=== PATIENT | female | born 1985 | race Caucasian/White ===

== ENCOUNTER 2020-03-31 06:23 | Emergency (ER) | payer BC ==
[2020-03-31] MEDS ORDERED: NA CHLORIDE 0.9% 1,000 ML ONE (06:57)
[2020-03-31 07:08] LABS: Absolute Lymphocytes (CBC) 2.1 K/uL (0.7-4.9); Basophils % 0.9 % (0-1.3); Hematocrit 37.7 % (36.0-45.0); Lymphocytes % 27.5 % (15.3-44.8); MPV 7.9 fL (7.6-11.3); RBC Red Blood Cell Count 4.41 M/uL (3.86-4.86)
[2020-03-31 07:25] LABS: Barbiturates NEGATIVE (NEGATIVE); Benzodiazepines NEGATIVE (NEGATIVE); Cocaine NEGATIVE (NEGATIVE); METHAMPHETAM NEGATIVE (NEGATIVE); Methadone NEGATIVE (NEGATIVE); Opiates NEGATIVE (NEGATIVE); Phencyclidine NEGATIVE (NEGATIVE); THC Cannibis NEGATIVE (NEGATIVE)
[2020-03-31 07:32] LABS: ALT/SGPT 24 U/L (12-78); AST/SGOT 18 U/L (15-37); Albumin 3.7 g/dL (3.4-5.0); Alkaline Phosphatase 32 U/L (45-117); BUN Blood Urea Nitrogen 12 mg/dL (7-18); Bicarbonate 21 mmol/L (21-32); Bilirubin Direct 0.1 mg/dL (0-0.2); Bilirubin Total 0.4 mg/dL (0.2-1.0); Glucose Level 104 mg/dL (74-106); Magnesium 1.7 mg/dL (1.8-2.4); NT PRO-BNP 67 pg/mL (<125); Potassium 3.3 mmol/L (3.5-5.1); Protein, Total 7.3 g/dL (6.4-8.2); Sodium Level 141 mmol/L (136-145); Troponin (Emerg Dept Use Only) < 0.02 ng/mL (0.0-0.045)
--- NOTE | 2020-03-31 08:17 | RAD REPORT ---
EXAM DESCRIPTION: RAD - Chest Single View - 03/31/2020 6:53 am CLINICAL HISTORY: COUGH, chest pain COMPARISON: None TECHNIQUE: AP portable chest image was obtained 03/31/2020 6:53 am . FINDINGS: Lungs are clear. Heart and vasculature are normal. No measurable pleural effusion and no p neumothorax. No acute bony abnormality seen. No acute aortic findings suspected. IMPRESSION: No acute cardiopulmonary process.
--- NOTE | 2020-03-31 08:23 | ER ---
Nurse's Notes [facility] Name: Veronica Russo Age: 34 yrs Sex: Female : 1985 Arrival Date: 03/31/2020 Time: 06:24 Bed 5 Private MD: Diagnosis: Palpitations;Chest pain, unspecified Presentation: 03/31 06:28 Chief complaint: EMS states: Pt drank a pre work out drink and started having chest wh pain. Pt stated feeling like palpitations and pressure. Coronavirus screen: Client denies travel out of the [place] in the last 14 days. At this time, the client does not indicate any symptoms associated with coronavirus-19. Ebola Screen: Patient negative for fever greater than or equal to 101.5 degrees Fahrenheit, and additional compatible Ebola Virus Disease symptoms Patient denies exposure to infectious person. Risk Assessment: Do you want to hurt yourself or someone else? Patient reports no desire to harm self or others. Onset of symptoms was March 31, 2020. Care prior to arrival: Medication(s) given: ASA, 325 mg, Nitroglycerin, x 1, NSR on EKG. 06:28 Method Of Arrival: EMS: [facility] 06:28 Acuity: AMANDA 3 06:28 Initial Sepsis Screen: Does the patient meet any 2 criteria? No. Patient's initial sepsis screen is negative. Does the patient have a suspected source of infection? No. Patient's initial sepsis screen is negative. 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 - Family history:: not pertinent. - Social history:: Smoking status: Patient/guardian denies using. Screenin:32 Abuse screen: Denies threats or abuse. Denies injuries from another. Nutritional screening: No deficits noted. Tuberculosis screening: No symptoms or risk factors identified. Fall Risk None identified. Assessment: 06:33 General: Appears in no apparent distress. Behavior is calm, cooperative, appropriate wh for age. Pain: Complains of pain in chest Pain does not radiate. Quality of pain is described as pressure, Pain began 1 hour ago. Neuro: Level of Consciousness is awake, alert, obeys commands, Oriented to person, place, time, situation, Appropriate for age. Cardiovascular: Heart tones S1 S2. Respiratory: Airway is patent Respiratory effort is even, unlabored, Respiratory pattern is regular, symmetrical, Breath sounds are clear bilaterally. GI: Abdomen is flat, non-distended. : No signs and/or symptoms were reported regarding the genitourinary system. EENT: No signs and/or symptoms were reported regarding the EENT system. Derm: Skin is intact, is healthy with good turgor, Skin is pink, warm \T\ dry. normal. Musculoskeletal: Circulation, motion, and sensation intact. 07:24 Reassessment: Patient and/or family updated on plan of care and expected duration. Pain jd3 level reassessed. provider at bedside. General: Appears in no apparent distress. comfortable, Behavior is calm, cooperative, appropriate for age. Pain: Complains of pain in chest Quality of pain is described as pressure. Neuro: Level of Consciousness is awake, alert, obeys commands, Oriented to person, place, time, situation. Cardiovascular: Capillary refill < 3 seconds Patient's skin is warm and dry. Rhythm is regular. Respiratory: Airway is patent Respiratory effort is even, unlabored, Respiratory pattern is regular, symmetrical, Denies cough, shortness of breath. 08:32 Reassessment: Patient appears in no apparent distress at this time. Patient and/or jd3 family updated on plan of care and expected duration. Pain level reassessed. Patient is alert, oriented x 3, equal unlabored respirations, skin warm/dry/pink. awaiting ride for discharge Patient states feeling better. Vital Signs: 06:28 BP 138 / 79; Pulse 89; Resp 18; Temp 98.2; Pulse Ox 98% on R/A; Weight 112.49 kg; Height 5 ft. 4 in. (162.56 cm); 08:33 BP 129 / 76; Pulse 88; Resp 16 S; Pulse Ox 98% on R/A; jd3 06:28 Body Mass Index 42.57 (112.49 kg, 162.56 cm) ED Course: 06:24 Patient arrived in ED. cl3 06:26 Bandar Mars MD is Attending Physician. [facility] 06:28 Damion Gaitan, RN is Primary Nurse. 06:30 Triage completed. 06:37 Arm band placed on right wrist. 06:37 Patient has correct armband on for positive identification. Placed in gown. Bed in low wh position. Call light in reach. Side rails up X 1. manager pmo on. Pulse ox on. NIBP on. 06:37 Patient maintains SpO2 saturation greater than 95% on room air. wh 06:51 XRAY Chest (1 view) In Process Unspecified. EDMS 06:54 Initial lab(s) drawn, by oh, sent to lab. Inserted saline lock: 20 gauge in left rv forearm, using aseptic technique. Blood collected. 07:03 Attending Physician role handed off by Bandar Mars MD rn 07:03 Satya Valladares MD is Attending Physician. rn 08:22 Serjio Tariq MD is Referral Physician. rn 08:32 No provider procedures requiring assistance completed. IV discontinued, intact, jd3 bleeding controlled, No redness/swelling at site. Pressure dressing applied. Administered Medications: 06:30 CANCELLED (EMS gave 324 Aspirin): Aspirin Chewable Tablet 162 mg PO once rv 07:08 Drug: NS 0.9% 1000 ml Route: IV; Rate: 1 bolus; Site: left forearm; 08:00 Follow up: Response: No adverse reaction; IV Status: Completed infusion; IV Intake: jd3 1000ml Intake: 08:00 IV: 1000ml; Total: 1000ml. jd3 Outcome: 08:22 Discharge ordered by MD. rn 08:32 Discharged to home ambulatory, with family. jd3 08:32 Condition: stable 08:32 Discharge instructions given to patient, Instructed on discharge instructions, follow up and referral plans. Demonstrated understanding of instructions, follow-up care. 08:57 Patient left the ED. jd3 Signatures: Dispatcher [employer] EDNE Bandar Mars MD MD cha Nieto, Roman, MD MD rn Habalo, Winsy, RN RN wh Davies, Jonathon, RN RN jWilliam Calloway RN RN rv Lewis, Charde cl3 Corrections: (The following items were deleted from the chart) 06:37 06:28 Resp 18bpm; Temp 98.2F; 112.49 kg; Height 5 ft. 4 in.; BMI: 42.5; [facility]
--- NOTE | 2020-03-31 08:23 | EDPHYS ---
Physician Documentation [facility] Name: Veronica Russo Age: 34 yrs Sex: Female : 1985 Arrival Date: 03/31/2020 Time: 06:24 Bed 5 Private MD: ED Physician Satya Valladares HPI: 03/31 06:28 This 34 yrs old Female presents to ER via Unassigned with complaints of Chest vanessa Pain. 06:28 The patient or guardian reports chest pain that is located primarily in the anterior vanessa chest wall, bilaterally. The pain does not radiate. Associated signs and symptoms: Pertinent positives: diaphoresis, dizziness, lightheadedness, nausea, palpitations. The chest pain is described as a pressure. Duration: The patient or guardian reports a single episode, that is still ongoing, but improving. Modifying factors: The symptoms are alleviated by nothing. the symptoms are aggravated by nothing. Severity of pain: At its worst the pain was mild in the emergency department the pain is unchanged. The patient has not experienced similar symptoms in the past. 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 - Family history:: not pertinent. - Social history:: Smoking status: Patient/guardian denies using. ROS: 06:28 Constitutional: Negative for fever, chills, and weight loss, Eyes: Negative for injury, vanessa pain, redness, and discharge, ENT: Negative for injury, pain, and discharge, Neck: Negative for injury, pain, and swelling, Respiratory: Negative for shortness of breath, cough, wheezing, and pleuritic chest pain, Abdomen/GI: Negative for abdominal pain, nausea, vomiting, diarrhea, and constipation, Back: Negative for injury and pain, : Negative for injury, bleeding, discharge, and swelling, MS/Extremity: Negative for injury and deformity, Skin: Negative for injury, rash, and discoloration, Neuro: Negative for headache, weakness, numbness, tingling, and seizure, Psych: Negative for depression, anxiety, suicide ideation, homicidal ideation, and hallucinations, Allergy/Immunology: Negative for hives, rash, and allergies, Endocrine: Negative for neck swelling, polydipsia, polyuria, polyphagia, and marked weight changes, Hematologic/Lymphatic: Negative for swollen nodes, abnormal bleeding, and unusual bruising. 06:28 Cardiovascular: Positive for chest pain, palpitations. Exam: 06:28 Constitutional: This is a well developed, well nourished patient who is awake, alert, vanessa and in no acute distress. Head/Face: Normocephalic, atraumatic. Eyes: Pupils equal round and reactive to light, extra-ocular motions intact. Lids and lashes normal. Conjunctiva and sclera are non-icteric and not injected. Cornea within normal limits. Periorbital areas with no swelling, redness, or edema. ENT: Nares patent. No nasal discharge, no septal abnormalities noted. Tympanic membranes are normal and external auditory canals are clear. Oropharynx with no redness, swelling, or masses, exudates, or evidence of obstruction, uvula midline. Mucous membranes moist. Neck: Trachea midline, no thyromegaly or masses palpated, and no cervical lymphadenopathy. Supple, full range of motion without nuchal rigidity, or vertebral point tenderness. No Meningismus. Chest/axilla: Normal chest wall appearance and motion. Nontender with no deformity. No lesions are appreciated. Cardiovascular: Regular rate and rhythm with a normal S1 and S2. No gallops, murmurs, or rubs. Normal PMI, no JVD. No pulse deficits. Respiratory: Lungs have equal breath sounds bilaterally, clear to auscultation and percussion. No rales, rhonchi or wheezes noted. No increased work of breathing, no retractions or nasal flaring. Abdomen/GI: Soft, non-tender, with normal bowel sounds. No distension or tympany. No guarding or rebound. No evidence of tenderness throughout. Back: No spinal tenderness. No costovertebral tenderness. Full range of motion. Skin: Warm, dry with normal turgor. Normal color with no rashes, no lesions, and no evidence of cellulitis. MS/ Extremity: Pulses equal, no cyanosis. Neurovascular intact. Full, normal range of motion. Neuro: Awake and alert, GCS 15, oriented to person, place, time, and situation. Cranial nerves II-XII grossly intact. Motor strength 5/5 in all extremities. Sensory grossly intact. Cerebellar exam normal. Normal gait. Psych: Awake, alert, with orientation to person, place and time. Behavior, mood, and affect are within normal limits. 06:28 Musculoskeletal/extremity: DVT Exam: No signs of deep vein thrombosis. no pain, no swelling, no tenderness, negative Homans' sign noted on exam, no appreciated bluish discoloration, no erythema, no increased warmth. 06:37 ECG was reviewed by the Attending Physician. [facility] Vital Signs: 06:28 BP 138 / 79; Pulse 89; Resp 18; Temp 98.2; Pulse Ox 98% on R/A; Weight 112.49 kg; wh Height 5 ft. 4 in. (162.56 cm); 08:33 BP 129 / 76; Pulse 88; Resp 16 S; Pulse Ox 98% on R/A; jd3 06:28 Body Mass Index 42.57 (112.49 kg, 162.56 cm) wh MDM: 06:30 Differential diagnosis: abnormal EKG, acute pericarditis, anxiety, coronary artery vanessa disease chest wall pain, Cholelithiasis costochondritis, hiatal hernia, pancreatitis, pericarditis, stable angina, unstable angina. HEART Score: History: Slightly Suspicious (0), ECG: Normal (0), Age: < or = 45 years (0), Risk Factors: No Risk Factors Known (0), Troponin: < or = 1 x Normal Limit (0), Total Score = 0. The patient's deep vein thrombosis risk score was calculated as follows: Total Score: 0. This patient was found to be at low risk for a deep vein thrombosis by using the Well's assessment criteria. The patient's pulmonary embolism risk score was calculated as follows: Total Score: 0-2 points. This patient was found to be at low risk for a pulmonary embolism by using the Well's assessment criteria. ALEJANDRA Risk Score: not applicable, TOTAL SCORE =. Data reviewed: vital signs, nurses notes, lab test result(s), EKG, radiologic studies. 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 rate is 93 beats/min, Pulse oximetry: on room air is 98 %. Test interpretation: by ED physician or midlevel provider: plain radiologic studies. Counseling: I had a detailed discussion with the patient and/or guardian regarding: the historical points, exam findings, and any diagnostic results supporting the discharge/admit diagnosis, lab results, radiology results, the need for outpatient follow up, for definitive care, a air chipper, a family practitioner. 06:37 Patient medically screened. vanessa 07:19 Transition of care: Care assumed from Bandar Mars MD. rn 07:19 ED course: signed out to me by Dr. Mars, pending labs and eval for chest pain after rn stimulant ingestion. Plan per Dr. Mars is to dc home if w/u neg. . 08:21 ED course: Trop neg, ecg without ischemia, feels much better, recommend cessation of rn stimulants, and will dc home. If continues will have her f/u with cardiology. . 03/31 06:28 Order name: Basic Metabolic Panel; Complete Time: 08:12 vanessa 03/31 06:28 Order name: CBC with Diff; Complete Time: 08:12 vanessa 03/31 06:28 Order name: LFT's; Complete Time: 08:12 vanessa 03/31 06:28 Order name: Magnesium; Complete Time: 08:12 vanessa 03/31 06:28 Order name: NT PRO-BNP; Complete Time: 08:12 vanessa 03/31 06:28 Order name: Troponin (emerg Dept Use Only); Complete Time: 08:12 vanessa 03/31 06:28 Order name: XRAY Chest (1 view); Complete Time: 08:20 vanessa 03/31 06:28 Order name: EKG; Complete Time: 06:29 vanessa 03/31 06:28 Order name: TSH; Complete Time: 08:12 vanessa 03/31 06:40 Order name: UDS; Complete Time: 08:12 vanessa 03/31 07:02 Order name: Urine Dipstick--Ancillary (enter results); Complete Time: 08:56 eb 03/31 07:02 Order name: Urine --Ancillary (enter results); Complete Time: 08:56 eb 03/31 06:28 Order name: Cardiac monitoring; Complete Time: 06:54 vanessa 03/31 06:28 Order name: EKG - Nurse/Tech; Complete Time: 06:54 vanessa 03/31 06:28 Order name: IV Saline Lock; Complete Time: 06:54 vanessa 03/31 06:28 Order name: Labs collected and sent; Complete Time: 06:54 vanessa 03/31 06:28 Order name: O2 Per Protocol; Complete Time: 06:55 [facility] 03/31 06:28 Order name: O2 Sat Monitoring; Complete Time: 06:55 [facility] 03/31 06:28 Order name: Urine Dipstick-Ancillary (obtain specimen); Complete Time: 06:45 [facility] 03/31 06:28 Order name: Urine Test (obtain specimen); Complete Time: 06:45 [facility] EC:37 Rate is 78 beats/min. Rhythm is regular. QRS [place] is Normal. NV interval is normal. QRS vanessa interval is normal. QT interval is normal. No Q waves. T waves are Normal. No ST changes noted. Clinical impression: Normal ECG and No evidence of ischemia. Interpreted by me. Reviewed by me. Administered Medications: 06:30 CANCELLED (EMS gave 324 Aspirin): Aspirin Chewable Tablet 162 mg PO once rv 07:08 Drug: NS 0.9% 1000 ml Route: IV; Rate: 1 bolus; Site: left forearm; 08:00 Follow up: Response: No adverse reaction; IV Status: Completed infusion; IV Intake: jd3 1000ml Disposition: 03/31/20 08:22 Discharged to Home. Impression: Palpitations, Chest pain, unspecified. - Condition is Stable. - Discharge Instructions: Nonspecific Chest Pain, Palpitations, Nonspecific Chest Pain, [id number], Aspirin and Your Heart, Palpitations, [id number]. - Medication Reconciliation Form, Thank You Letter, Antibiotic Education, Prescription Opioid Use, Work release form form. - Follow up: Private Physician; When: 2 - 3 days; Reason: Recheck today's complaints, Continuance of care, Re-evaluation by your physician. Follow up: Serjio Tariq; When: 2 - 3 days; Reason: Recheck today's complaints, Continuance of care, Re-evaluation by your physician. - Problem is new. - Symptoms have improved. Signatures: Dispatcher [employer] EDBandar Chakraborty MD MD cha Nieto, Roman, MD MD rn Habalo, Winsy, RN RN Dimas Geller RN RN jd3 Vicente, Ronaldo RN rv Corrections: (The following items were deleted from the chart) 06:30 06:28 Aspirin Chewable Tablet 162 mg PO once ordered. [facility] rv 08:57 08:22 03/31/2020 08:22 Discharged to Home. Impression: Palpitations; Chest pain, jd3 unspecified. Condition is Stable. Discharge Instructions: Nonspecific Chest Pain, Palpitations, Nonspecific Chest Pain, [id number], Aspirin and Your Heart, Palpitations, [id number]. Forms are Medication Reconciliation Form, Thank You Letter, Antibiotic Education, Prescription Opioid Use. Follow up: Private Physician; When: 2 - 3 days; Reason: Recheck today's complaints, Continuance of care, Re-evaluation by your physician. Follow up: Serjio Tariq; When: 2 - 3 days; Reason: Recheck today's complaints, Continuance of care, Re-evaluation by your physician. Problem is new. Symptoms have improved. rn
[2020-03-31 08:44] LABS: Urine Blood 3+ (NEG); Urine Glucose NEGATIVE (NEG); Urine Protein 3+ (NEG); Urine Specific Gravity 1.025 (1.005-1.030)
[2020-03-31 09:02] VITALS: TEMP 98.2; O2SAT 98
[2020-03-31 09:03] VITALS: BP 129/76
== END 2020-03-31 08:57 | disposition home or self-care (01) ==
LOC: ER 06:23
DX: R00.2 Palpitations (principal)
CPT/HCPCS: 93005; 85025; 80048; 36415; 83735; 81025; 80076; 80307 ×8; 84443; 81003; 84484; 83880; 71045; 96360; 99285; J7030

== ENCOUNTER 2020-07-13 16:26 | Emergency (ER) | payer SELFPAY ==
--- NOTE | 2020-07-13 20:28 | ER ---
Nurse's Notes [facility] Name: Veronica Russo Age: 35 yrs Sex: Female : 1985 Arrival Date: 07/13/2020 Time: 16:30 Bed Waiting Private MD: Diagnosis: Presentation: 07/13 16:44 Chief complaint: Patient states: chest pain that began 2 days ago after exercising and aa5 today it's been more constant and worse, pt also c/o SOB. 16:44 Coronavirus screen: At this time, the client does not indicate any symptoms associated aa5 with coronavirus-19. Ebola Screen: Patient negative for fever greater than or equal to 101.5 degrees Fahrenheit, and additional compatible Ebola Virus Disease symptoms. Initial Sepsis Screen: Does the patient meet any 2 criteria? No. Patient's initial sepsis screen is negative. Does the patient have a suspected source of infection? No. Patient's initial sepsis screen is negative. Risk Assessment: Do you want to hurt yourself or someone else? Patient reports no desire to harm self or others. Onset of symptoms was June 2020. 16:44 Acuity: AMANDA 3 aa5 16:44 Method Of Arrival: Ambulatory aa5 Historical: - Allergies: 16:46 Levaquin; aa5 16:46 Codeine; aa5 - PMHx: 16:49 high heart rate; aa5 - Immunization history:: Adult Immunizations unknown. - Social history:: Smoking status: Patient denies any tobacco usage or history of. Assessment: 19:38 Reassessment: called from the lobby, no answer. ca1 Vital Signs: 16:44 BP 121 / 72; Pulse 92; Resp 26 S; Temp 98.7(O); Pulse Ox 100% on R/A; Weight 127.01 kg aa5 (R); Height 5 ft. 4 in. (162.56 cm) (R); Pain 8/10; 16:44 Body Mass Index 48.06 (127.01 kg, 162.56 cm) aa5 ED Course: 16:30 Patient arrived in ED. mr 16:46 Arm band placed on. EKG completed in triage. Results shown to MD. aa5 16:47 Triage completed. aa5 19:36 Patient's name was called from ER lobby. No response. Unable to locate patient. Will ca1 disposition as left without being seen by a provider. Administered Medications: No medications were administered Outcome: 20:27 Patient left the ED. ca1 Signatures: Lauro Jennifer DuttonVicky, RN RN aa5 Kemi Donaldson RN RN ca1 Corrections: (The following items were deleted from the chart) 16:49 16:46 PMHx: None; aa5 aa5 20:27 20:26 Patient's name was called from ER Inform[facility]by. No response. Unable to locate patient. ca1 Will disposition as left without being seen by a provider. ca1
[2020-07-13 20:31] VITALS: BP 121/72; TEMP 98.7; O2SAT 100
== END 2020-07-13 20:27 | disposition left against medical advice (07) ==
LOC: ER 16:26
DX: Z53.21 Procedure and treatment not carried out due to patient leaving prior to being seen by health care provider (principal)
CPT/HCPCS: 93005; 99281

== ENCOUNTER 2020-10-16 05:35 | Emergency (ER) | payer BC ==
[2020-10-16 06:43] LABS: Absolute Lymphocytes (CBC) 1.5 K/uL (0.7-4.9); Basophils % 0.8 % (0-1.3); Lymphocytes % 17.9 % (15.3-44.8); MPV 7.8 fL (7.6-11.3); RBC Red Blood Cell Count 4.57 M/uL (3.86-4.86)
[2020-10-16 06:46] LABS: Protime INR 1.14
[2020-10-16 07:07] LABS: ALT/SGPT 76 U/L (12-78); AST/SGOT 47 U/L (15-37); Albumin 3.6 g/dL (3.4-5.0); Alkaline Phosphatase 30 U/L (45-117); BUN Blood Urea Nitrogen 9 mg/dL (7-18); Bicarbonate 24 mmol/L (21-32); Bilirubin Direct 0.5 mg/dL (0-0.2); Bilirubin Total 0.9 mg/dL (0.2-1.0); Glucose Level 88 mg/dL (74-106); Magnesium 1.8 mg/dL (1.8-2.4); NT PRO-BNP 49 pg/mL (<125); Potassium 3.4 mmol/L (3.5-5.1); Protein, Total 7.3 g/dL (6.4-8.2); Sodium Level 141 mmol/L (136-145); Troponin (Emerg Dept Use Only) < 0.02 ng/mL (0.0-0.045)
--- NOTE | 2020-10-16 08:30 | ER ---
Nurse's Notes [facility] Name: Veronica Russo Age: 35 yrs Sex: Female : 1985 Arrival Date: 10/16/2020 Time: 05:37 Bed Waiting Private MD: Diagnosis: Palpitations;Chest pain, unspecified Presentation: 10/16 06:08 Chief complaint: Patient states: woke up with rapid HR in the 160s and chest pain, em denies nausea and vomiting, has had this happen in the past and has had many work up and Holter monitors, was placed on metoprolol but the medication made right side of face numb. Coronavirus screen: Client denies travel out of the [place] in the last 14 days. Ebola Screen: Patient negative for fever greater than or equal to 101.5 degrees Fahrenheit, and additional compatible Ebola Virus Disease symptoms Patient denies exposure to infectious person. Patient denies travel to an Ebola-affected area in the 21 days before illness onset. No symptoms or risks identified at this time. Initial Sepsis Screen: Does the patient meet any 2 criteria? HR > 90 bpm. No. Patient's initial sepsis screen is negative. Does the patient have a suspected source of infection? No. Patient's initial sepsis screen is negative. Risk Assessment: Do you want to hurt yourself or someone else? Patient reports no desire to harm self or others. Onset of symptoms was October 16, 2020. 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 - Social history:: Smoking status: Patient denies any tobacco usage or history of. - Family history:: not pertinent. - Hospitalizations: : No recent hospitalization is reported. Screenin:08 Abuse screen: Denies threats or abuse. Nutritional screening: No deficits noted. em Tuberculosis screening: No symptoms or risk factors identified. Fall Risk None identified. Assessment: 06:08 General: Appears in no apparent distress. comfortable, Behavior is calm, cooperative, em appropriate for age. Pain: Complains of pain in chest. Neuro: Level of Consciousness is awake, alert, obeys commands, Oriented to person, place, time, situation, Appropriate for age. Cardiovascular: Capillary refill < 3 seconds Patient's skin is warm and dry. Rhythm is sinus rhythm. Respiratory: Airway is patent Respiratory effort is even, unlabored, Respiratory pattern is regular, symmetrical. GI: Patient currently denies nausea, vomiting. Derm: Skin is intact, is healthy with good turgor, Skin is pink, warm \T\ dry. Musculoskeletal: Capillary refill < 3 seconds, Range of motion: intact in all extremities. 07:30 Reassessment: Patient appears in no apparent distress at this time. Patient and/or ss family updated on plan of care and expected duration. Pain level reassessed. Patient is alert, oriented x 3, equal unlabored respirations, skin warm/dry/pink. Dr. Valladares assessing patient at this time. 07:45 Reassessment: XRAY obtained at this time. Awaiting results. ss Vital Signs: 06:08 BP 118 / 82; Pulse 91; Resp 18; Temp 98.1; Pulse Ox 100% on R/A; Weight 112.94 kg; em Height 5 ft. 4 in. (162.56 cm); 07:29 BP 116 / 67; Pulse 90; Resp 16; Temp 97.7(TE); Pulse Ox 100% on R/A; ss 06:08 Body Mass Index 42.74 (112.94 kg, 162.56 cm) em ED Course: 05:37 Patient arrived in ED. bp1 06:05 Initial lab(s) drawn, by me, sent to lab. Inserted saline lock: 22 gauge in right em antecubital area, using aseptic technique. Blood collected. 06:08 Patient has correct armband on for positive identification. em 06:11 Triage completed. em 06:11 Arm band placed on. em 07:16 Satya Valladares MD is Attending Physician. rn 07:30 No provider procedures requiring assistance completed. ss 08:23 XRAY Chest (1 view) In Process Unspecified. EDMS 08:52 Patient did not have IV access during this emergency room visit. ss Administered Medications: 08:22 Drug: Potassium Chloride 40 mEq Route: PO; em 08:28 Not Given (not tachycardicc): Propranolol 10 mg PO once rn Outcome: 08:29 Discharge ordered by . rn 08:52 Discharged to home ambulatory. ss 08:52 Condition: good 08:52 Discharge instructions given to patient, Instructed on discharge instructions, follow up and referral plans. Demonstrated understanding of instructions, follow-up care, Prescriptions given X 08:52 Patient left the ED. ss Signatures: Dispatcher [employer] EDRoel Basurto RN RN em Nieto, Roman, MD MD rn Smirch, Shelby, RN RN [facility] Corrections: (The following items were deleted from the chart) 07:26 06:08 Chief complaint: Patient states: woke up with rapid HR in the 160s and chest em pain, nausea and vomiting, has had this happen in the past and has had many work up and Holter monitors, was placed on metoprolol but the medication made right side of face numb em
--- NOTE | 2020-10-16 08:30 | EDPHYS ---
Physician Documentation [facility] Name: Veronica Russo Age: 35 yrs Sex: Female : 1985 Arrival Date: 10/16/2020 Time: 05:37 Bed Waiting Private MD: ED Physician Satya Vlaladares HPI: 10/16 07:30 This 35 yrs old Female presents to ER via Wheelchair with complaints of Rapid athletic training internship Beat. 07:30 The patient presents with a history of heart racing. Context: The symptoms occur during rn sleep. Onset: The symptoms/episode began/occurred just prior to arrival. Duration: The patient or guardian reports a single episode, that lasted 2 minute(s). Modifying factors: The symptoms are aggravated by nothing. The symptoms are alleviated by nothing. Associated signs and symptoms: Pertinent positives: chest pain, Pertinent negatives: fever, lightheadedness, SOB, syncope. Severity of symptoms: At their worst the symptoms were moderate in the emergency department the symptoms have improved. The patient has experienced similar episodes in the past. The patient has been recently seen by a physician:. Patient reports palpitations that woke her up from sleep this morning, heart was racing, states heart rate in the 160s, lasted for 2 minutes and now markedly improved. States this has been happening for the last 6 months at least. No family history of cardiac problems at her age. Just had surgery 2 weeks ago for hiatal hernia repair and esophageal dilation. Denies any blood in stool/diarrhea/vomiting/abdominal pain. Reports palpitations on and off for at least 6 months, multiple work-ups and admissions without diagnosis, placed on metoprolol but had adverse effect of paresthesias on face so stopped it.. 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 - Social history:: Smoking status: Patient denies any tobacco usage or history of. - Family history:: not pertinent. - Hospitalizations: : No recent hospitalization is reported. ROS: 07:30 Constitutional: Negative for fever, chills, and weight loss, Eyes: Negative for injury, rn pain, redness, and discharge, ENT: Negative for injury, pain, and discharge, Neck: Negative for injury, pain, and swelling, Cardiovascular: Negative for edema Respiratory: Negative for shortness of breath, cough, wheezing, and pleuritic chest pain, Abdomen/GI: Negative for abdominal pain, nausea, vomiting, diarrhea, and constipation, Back: Negative for injury and pain, : Negative for injury, bleeding, discharge, and swelling, MS/Extremity: Negative for injury and deformity, Skin: Negative for injury, rash, and discoloration, Neuro: Negative for headache, weakness, numbness, tingling, and seizure. 07:30 All other systems are negative. Exam: 07:30 Constitutional: Overweight female, no acute distress, sitting in wheelchair rn comfortably Head/Face: Normocephalic, atraumatic. Eyes: Periorbital areas with no swelling, redness, or edema. ENT: No stridor Cardiovascular: Tachycardic, regular, no pulse deficits Respiratory: Speaking full sentences, unlabored. No increased work of breathing, no retractions or nasal flaring. Abdomen/GI: Soft, nondistended Skin: Warm, dry MS/ Extremity: Pulses equal, no cyanosis. Neuro: Awake and alert, GCS 15 07:35 ECG was reviewed by the Attending Physician. rn Vital Signs: 06:08 BP 118 / 82; Pulse 91; Resp 18; Temp 98.1; Pulse Ox 100% on R/A; Weight 112.94 kg; em Height 5 ft. 4 in. (162.56 cm); 07:29 BP 116 / 67; Pulse 90; Resp 16; Temp 97.7(TE); Pulse Ox 100% on R/A; ss 06:08 Body Mass Index 42.74 (112.94 kg, 162.56 cm) em MDM: 07:46 Differential diagnosis: arrythmia, dehydration, stress disorder, MVP, palpitations, rn anxiety, electrolyte disorder. Data reviewed: vital signs, nurses notes, lab test result(s), EKG, radiologic studies, plain films. 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 Interpretation: normal. Test interpretation: by ED physician or midlevel provider: ECG, plain radiologic studies, CXR neg for infiltrate or pneumothorax. 08:28 Counseling: I had a detailed discussion with the patient and/or guardian regarding: the rn historical points, exam findings, and any diagnostic results supporting the discharge/admit diagnosis, lab results, radiology results, the need for outpatient follow up, to return to the emergency department if symptoms worsen or persist or if there are any questions or concerns that arise at home. Special discussion: Based on the patient's history, exam, and Dx evaluation, there is no indication for emergent intervention or inpatient Tx. It is understood by the patient/guardian that if the Sx's persist or worsen they need to return immediately for re-evaluation. I discussed with the patient/guardian in detail that at this point there is no indication for admission to the hospital. It is understood, however, that if the symptoms persist or worsen the patient needs to return immediately for re-evaluation. Based on the history and exam findings, there is no indication for further emergent testing or inpatient evaluation. I discussed with the patient/guardian the need to see the fireworks maker for further evaluation of the symptoms. ED course: Repeat vital signs normal, mild hypokalemia on blood work otherwise everything within normal limits. EKG without ischemia and troponin negative. Will DC home with cardiology follow-up and PCP follow-up.. 08:29 Patient medically screened. rn 10/16 06:32 Order name: Basic Metabolic Panel 10/16 06:32 Order name: CBC with Diff 10/16 06:32 Order name: LFT's 10/16 06:32 Order name: Magnesium em 10/16 06:32 Order name: NT PRO-BNP 10/16 06:32 Order name: PT-INR 10/16 06:32 Order name: Troponin (emerg Dept Use Only) 10/16 06:44 Order name: CBC with Automated Diff; Complete Time: 07:24 EDOH 10/16 06:47 Order name: Protime (+INR); Complete Time: 07:24 EDOH 10/16 07:07 Order name: Basic Metabolic Panel; Complete Time: 07:24 EDOH 10/16 07:07 Order name: Liver (Hepatic) Function; Complete Time: 07:24 EDOH 10/16 07:07 Order name: Troponin (Emerg Dept Use Only); Complete Time: 07:24 EDMS 10/16 07:07 Order name: NT PRO-BNP; Complete Time: 07:24 EDMS 10/16 07:07 Order name: Magnesium; Complete Time: 07:24 EDMS 10/16 06:32 Order name: XRAY Chest (1 view) em 10/16 06:32 Order name: EKG; Complete Time: 06:33 em 10/16 06:32 Order name: Cardiac monitoring em 10/16 06:32 Order name: EKG - Nurse/Tech em 10/16 06:32 Order name: IV Saline Lock em 10/16 06:32 Order name: Labs collected and sent em 10/16 06:32 Order name: O2 Per Protocol em 10/16 06:32 Order name: O2 Sat Monitoring em EC:35 Rate is 105 beats/min. Rhythm is regular. QRS Reading is Normal. AK interval is normal. rn QRS interval is normal. QT interval is normal. No Q waves. T waves are Normal. No ST changes noted. Clinical impression: Sinus tachycardia. Interpreted by me. Reviewed by me. Administered Medications: 08:22 Drug: Potassium Chloride 40 mEq Route: PO; em 08:28 Not Given (not tachycardicc): Propranolol 10 mg PO once rn Disposition Summary: 10/16/20 08:29 Discharge Ordered Location: Home rn Problem: an ongoing problem rn Symptoms: have improved rn Condition: Stable rn Diagnosis - Palpitations rn - Chest pain, unspecified rn Followup: rn - With: Private Physician - When: As needed - Reason: Recheck today's complaints, Re-evaluation by your physician Discharge Instructions: - Discharge Summary Sheet rn - Nonspecific Chest Pain, Adult rn - Palpitations rn Forms: - Medication Reconciliation Form rn - Thank You Letter rn - Antibiotic dietary internship - Prescription Opioid Use rn Signatures: Dispatcher [employer] Roel Rodriguez RN RN em Satya Valladares MD MD rn
--- NOTE | 2020-10-16 08:34 | RAD REPORT ---
EXAM DESCRIPTION: RAD - Chest Single View - 10/16/2020 8:24 am CLINICAL HISTORY: CHEST PAIN COMPARISON: Chest Single View dated 03/31/2020 FINDINGS: No evidence of edema or pneumonia. The heart size is within normal limits.No acute osseous abnormality. No significant pleural effusions or pneumothorax. IMPRESSION: No acute cardiopulmonary disease.
[2020-10-16] MEDS ORDERED: POTASSIUM CL SA 10 MEQ TAB PO ONE (08:43)
[2020-10-16 08:59] VITALS: O2SAT 100
[2020-10-16 09:01] VITALS: BP 116/67; TEMP 97.7
[2020-10-16] MEDS ORDERED: POTASSIUM 25 MEQ EFFERV TAB ONE (09:07)
== END 2020-10-16 08:52 | disposition home or self-care (01) ==
LOC: ER 05:35
DX: R07.9 Chest pain, unspecified (principal); Z88.1 Allergy status to other antibiotic agents; Z88.5 Allergy status to narcotic agent
CPT/HCPCS: 36415; 71045; 80048; 80076; 83735; 83880; 84484; 85025; 85610; 93005; 99284

== ENCOUNTER 2021-05-29 10:33 | Day surgery (SDC) | payer BC ==
[2021-05-29] MEDS ORDERED: Ringers Lactate 1,000 ML IV ONE (11:49)
[2021-05-29] MEDS ORDERED: propofoL 200 MG/20 ML VIAL IV ONE ×2 (14:11→14:31)
[2021-05-29] MEDS ORDERED: LIDOCAINE 1% MPF 5 ML VIAL ONE (14:11)
[2021-05-29] MEDS ORDERED: ONDANSETRON 4 MG/2 ML VIAL ONE (14:16)
--- NOTE | 2021-05-29 14:46 | ENDO RPT ---
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 pylori MEDICATIONS: Per Anesthesia. TOPICAL ANESTHETIC: none CONSENT: The patient understands the risks and benefits of the procedure and understands that these risks include, but are not limited to: sedation, allergic reaction, infection, perforation and/or bleeding. Alternative means of evaluation and treatment include, among others: physical exam, x-rays, and/or surgical intervention. The patient elects to proceed with this endoscopic procedure. DESCRIPTION OF PROCEDURE: During intra-op preparation period all mechanical medical equipment was checked for proper function. Hand hygiene and appropriate measures for infection prevention was taken. Procedure, possible complications, and alternatives including but not limited to the possibility of bleeding, perforation, tear, infection, sepsis, need for surgery, need for blood transfusion, and anesthesia related complications were explained to the patient. After the risks, benefits and alternatives of the procedure were thoroughly explained, Informed consent was verified, confirmed and timeout was successfully executed by the treatment team. The patient was placed in the left lateral position. The patient was anesthetized with topical anesthesia. Through the anesthetized oropharyngeal area, the scope was passed without any difficulty. The EG-[id number] ([id number]) endoscope was introduced through the mouth and advanced to the second portion of the duodenum. Scar @ GEJ. The gastroscope was then slowly withdrawn and removed. Mild gastritis was found in the body and the antrum of the stomach. A biopsy for H. pylori was taken. Evidence of prior esophageal dilation ADVERSE EVENTS: There were no complications. IMPRESSIONS: 1. Mild gastritis was found in the body and the antrum of the stomach 2. Evidence of prior esophageal dilation 3. Abnormal Motility - decreased persitalsis in distal esophagus RECOMMENDATIONS: 1. acid suppression therapy 2. await biopsy results 3. avoid NSAIDS 4. gastric emptying study 5. follow-up of helicobacter pylori status, treat if indicated REPEAT EXAM: Allan Barkley DR eSigned: Allan Barkley DR 05/29/2021 2:46 PM cc: CPT CODES: ICD9 CODES: PATIENT NAME: Veronica Russo MR#: [id number]
[2021-05-29 15:52] VITALS: TEMP 98.1
[2021-05-29 15:53] VITALS: O2SAT 100
[2021-05-29 15:55] VITALS: BP 124/57
== END 2021-05-29 15:34 | disposition home or self-care (01) ==
LOC: PRE 10:33 → OR 15:34
PROVIDERS: ATTEND Surgery
PROC: 0DB68ZX Excision of Stomach, Via Natural or Artificial Opening Endoscopic, Diagnostic (ICD-10-PCS; 2021-05-29)
PROC: 0DB48ZX Excision of Esophagogastric Junction, Via Natural or Artificial Opening Endoscopic, Diagnostic (ICD-10-PCS; 2021-05-29)
PROC: 0DB98ZX Excision of Duodenum, Via Natural or Artificial Opening Endoscopic, Diagnostic (ICD-10-PCS; principal; 2021-05-29 13:00)
DX: K29.50 Unspecified chronic gastritis without bleeding (principal); R11.0 Nausea; Z20.822 Contact with and (suspected) exposure to COVID-19
CPT/HCPCS: 88312; 88305; 43239; U0003; J2704 ×2; J7120; J2405

== ENCOUNTER 2022-11-13 19:39 | Emergency (ER) | payer BC ==
[2022-11-13 20:43] LABS: Urine Bilirubin NEGATIVE (Negative); Urine Blood Negative (Negative); Urine Clarity Clear (Clear); Urine Color Light-Yellow (Yellow); Urine Glucose NEGATIVE (Negative); Urine Protein NEGATIVE (Negative); Urine Urobilinogen Normal (Normal); Urine pH 5.5 (5.0-7.0)
[2022-11-13] MEDS ORDERED: NA CHLORIDE 0.9% 1,000 ML ONE (20:43)
[2022-11-13 20:53] LABS: Absolute Lymphocytes (CBC) 2.8 K/uL (0.7-4.9); Lymphocytes % 22.1 % (15.3-44.8); MCV 83.5 fL (80-100); MPV 7.2 fL (7.6-11.3); Platelets 337 thou/uL (152-406); RBC Red Blood Cell Count 4.79 M/uL (3.86-4.86)
[2022-11-13 21:11] LABS: Albumin 3.8 g/dL (3.4-5.0); Bilirubin Total 0.5 mg/dL (0.2-1.0); Potassium 3.3 mEq/L (3.5-5.1); Protein, Total 7.9 g/dL (6.4-8.2)
--- NOTE | 2022-11-13 23:52 | EDPHYS ---
[facility] Name: Veronica Russo Age: 37 yrs Sex: Female : 1985 Arrival Date: 11/13/2022 Time: 19:39 Bed 12 Private MD: ED Physician Flako Sr HPI: 11/13 21:05 This 37 yrs old Female presents to ER via Ambulatory with complaints of Constipation. kb 21:06 The patient presents with constipation. Onset: The symptoms/episode began/occurred 7 kb day(s) ago. The symptoms do not radiate. Associated signs and symptoms: Pertinent positives: constipation, Pertinent negatives: nausea, vomiting, and diarrhea, fever. The symptoms are described as constant. Modifying factors: The symptoms are alleviated by nothing, the symptoms are aggravated by nothing. Severity of pain: At its worst the pain was mild moderate in the emergency department the pain is unchanged. The patient has experienced similar episodes in the past. The patient has been recently seen at an urgent care. Pt reports constipation for 7 days. States she has taken multiple medications and enemas for this with no relief. Went to urgent care today and was told she was impacted and needed to come to the ER . 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 - Social history:: Smoking status: Patient denies any tobacco usage or history of. ROS: 21:05 Constitutional: Negative for fever, chills, and weight loss, kb 21:05 Abdomen/GI: Positive for abdominal pain, constipation, 21:05 All other systems are negative, Exam: 21:05 Constitutional: This is a well developed, well nourished patient who is awake, alert, kb and in no acute distress. Head/Face: Normocephalic, atraumatic. ENT: Moist Mucous membranes Cardiovascular: Regular rate Respiratory: Respirations even and unlabored. No increased work of breathing. Talking in full sentences Abdomen/GI: Soft, non-tender. No distention Skin: Warm, dry with normal turgor. Normal color. MS/ Extremity: Pulses equal, no cyanosis. Neurovascular intact. Full, normal range of motion. Neuro: Awake and alert, GCS 15, oriented to person, place, time, and situation. Moves all extremities. Normal gait. 23:16 Abdomen/GI: Rectal exam: rectal tone normal, fecal impaction, is not appreciated, kb Vital Signs: 19:58 BP 145 / 92; Pulse 85; Resp 16 S; Temp 98.2; Pulse Ox 100% on R/A; Weight 115.21 kg; ha1 Height 5 ft. 4 in. ; Pain 8/10; 21:05 BP 144 / 89; Pulse 83; Resp 16 S; Pulse Ox 100% on R/A; ha1 23:58 BP 137 / 61; Pulse 81; Resp 18 S; Pulse Ox 99% on R/A; as6 19:58 Body Mass Index 43.60 (115.21 kg, 162.56 cm) ha1 19:58 Pain Scale: Adult ha1 MDM: 19:57 Patient medically screened. kb 21:06 Differential diagnosis: bowel obstruction, non-specific abd pain, constipation. Data kb reviewed: vital signs, nurses notes. 23:49 Counseling: I had a detailed discussion with the patient and/or guardian regarding the kb historical points, exam findings, and any diagnostic results supporting the discharge/admit diagnosis, lab results, radiology results, the need for outpatient follow up, a ceo na, to return to the emergency department if symptoms worsen or persist or if there are any questions or concerns that arise at home. 11/13 20:05 Order name: CBC with Diff; Complete Time: 20:54 kb 11/13 20:05 Order name: CMP; Complete Time: 21:13 kb 11/13 20:05 Order name: Lipase; Complete Time: 21:13 kb 11/13 20:05 Order name: Test, Urine; Complete Time: 20:53 kb 11/13 20:05 Order name: Urinalysis w/ reflexes; Complete Time: 20:53 kb 11/13 20:05 Order name: CT Abd/Pelvis - PO and IV Contrast kb 11/13 20:05 Order name: IV Saline Lock; Complete Time: 20:43 kb 11/13 20:05 Order name: Labs collected and sent; Complete Time: 20:43 kb Administered Medications: 20:43 Drug: NS 0.9% IV 1000 ml IV at 1 bolus Per protocol; 1000 mL bolus Route: IV; Rate: 1 ha1 bolus; Site: right forearm; 23:38 Follow up: Response: No adverse reaction; IV Status: Completed infusion; IV Intake: as6 1000ml 23:57 Drug: Magnesium Citrate PO Liquid 300 ml PO once Route: PO; as6 23:57 Follow up: Response: No adverse reaction as6 Disposition: 11/14 10:07 Co-signature as Attending Physician, Flako Sr MD I reviewed the patient's care rt provided by the Advanced Practice Provider and agree with the diagnosis and treatment plan. Disposition Summary: 11/13/22 23:52 Discharge Ordered Notes: Location: Home kb Condition: Stable kb Diagnosis - Constipation kb Followup: kb - With: Emergency Department - When: As needed - Reason: Worsening of condition Followup: kb - With: Private Physician - When: 2 - 3 days - Reason: Recheck today's complaints, Continuance of care, Re-evaluation by your physician Discharge Instructions: - Discharge Summary Sheet kb - Constipation, Adult, [id number] kb Forms: - Medication Reconciliation Form kb - Thank You Letter kb - Antibiotic Education kb - Prescription Opioid Use kb - Patient Portal Instructions kb - Leadership Thank You Letter kb Signatures: Dispatcher [employer] Deborah Brothers, LINER ASSEMBLER-C LINER ASSEMBLER-Bill Chaves RN RN as6 Liliana Dunbar RN RN ha1 Flako rS MD MD rt
--- NOTE | 2022-11-13 23:52 | ER ---
Nurse's Notes [facility] Name: Veronica Russo Age: 37 yrs Sex: Female : 1985 Arrival Date: 11/13/2022 Time: 19:39 Bed 12 Private MD: Diagnosis: Constipation Presentation: 11/13 19:58 Chief complaint: Patient states: I have been constipated for the past seven days, I ha1 have tried different things but nothing is working. I just went to the urgent care and they told me to come here because my bowels are obstructed. Coronavirus screen: Vaccine status: Patient reports receiving the 2nd dose of the covid vaccine. Moderna. Ebola Screen: No symptoms or risks identified at this time. Initial Sepsis Screen: Does the patient meet any 2 criteria? No. Patient's initial sepsis screen is negative. Does the patient have a suspected source of infection? No. Patient's initial sepsis screen is negative. Risk Assessment: Do you want to hurt yourself or someone else? Patient reports no desire to harm self or others. Onset of symptoms was November 05, 2022. 19:58 Method Of Arrival: Ambulatory ha1 19:58 Acuity: AMANDA 3 ha1 Triage Assessment: 20:04 General: Appears uncomfortable, Behavior is calm, cooperative. Pain: Complains of pain ha1 in right lower quadrant Pain does not radiate. Pain currently is 8 out of 10 on a pain scale. Neuro: Level of Consciousness is awake, alert, obeys commands, Oriented to person, place, time, situation. Respiratory: Airway is patent Respiratory effort is even, unlabored, Respiratory pattern is regular, symmetrical. GI: Abdomen is round obese, Reports lower abdominal pain, nausea. 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 - Social history:: Smoking status: Patient denies any tobacco usage or history of. Screenin:48 Abuse screen: Denies threats or abuse. Denies injuries from another. Nutritional ha1 screening: No deficits noted. Tuberculosis screening: No symptoms or risk factors identified. 23:57 [facility] ED Fall Risk Assessment (Adult) Score/Fall Risk Level 0 - 2 = Low Risk. as6 Assessment: 21:05 Reassessment: Patient and/or family updated on plan of care and expected duration. Pain ha1 level reassessed. Patient is alert, oriented x 3, equal unlabored respirations, skin warm/dry/pink. Vital Signs: 19:58 BP 145 / 92; Pulse 85; Resp 16 S; Temp 98.2; Pulse Ox 100% on R/A; Weight 115.21 kg; ha1 Height 5 ft. 4 in. ; Pain 8/10; 21:05 BP 144 / 89; Pulse 83; Resp 16 S; Pulse Ox 100% on R/A; ha1 23:58 BP 137 / 61; Pulse 81; Resp 18 S; Pulse Ox 99% on R/A; as6 19:58 Body Mass Index 43.60 (115.21 kg, 162.56 cm) ha1 19:58 Pain Scale: Adult ha1 ED Course: 19:45 Patient arrived in ED. es 19:47 Deborah Aponte FNP-C is PHCP. kb 19:47 Flako Sr MD is Attending Physician. kb 20:04 Triage completed. ha1 20:40 Inserted saline lock: 22 gauge in right forearm, using aseptic technique. Blood ha1 collected. 20:40 Patient has correct armband on for positive identification. Bed in low position. Call ha1 light in reach. Side rails up X 1. 20:43 CBC with Diff Sent. ha1 20:43 CMP Sent. ha1 20:43 Lipase Sent. ha1 20:43 Test, Urine Sent. ha1 20:43 Urinalysis w/ reflexes Sent. ha1 21:48 Arm band placed on right wrist. ha1 22:48 CT Abd/Pelvis - PO and IV Contrast In Process Unspecified. EDMS 23:57 No provider procedures requiring assistance completed. IV discontinued, intact, as6 bleeding controlled, No redness/swelling at site. Pressure dressing applied. 23:58 Provided Education on: follow up. as6 Administered Medications: 20:43 Drug: NS 0.9% IV 1000 ml IV at 1 bolus Per protocol; 1000 mL bolus Route: IV; Rate: 1 ha1 bolus; Site: right forearm; 23:38 Follow up: Response: No adverse reaction; IV Status: Completed infusion; IV Intake: as6 1000ml 23:57 Drug: Magnesium Citrate PO Liquid 300 ml PO once Route: PO; as6 23:57 Follow up: Response: No adverse reaction as6 Medication: 23:58 VIS not applicable for this client. as6 Intake: 23:38 IV: 1000ml; Total: 1000ml. as6 Outcome: 23:52 Discharge ordered by MD. jo 23:57 Discharged to home ambulatory, as6 23:57 Condition: stable 23:57 Discharge instructions given to patient, Instructed on discharge instructions, follow up and referral plans. Demonstrated understanding of instructions, follow-up care, 23:58 Patient left the ED. as6 Signatures: Dispatcher [employer] Deborah Brothers, PUBLISHER ASSISTANT-C PUBLISHER ASSISTANT-Mmata Parekh Ashby, RN RN as6 Liliana Dunbar RN RN ha1
[2022-11-14] MEDS ORDERED: MAGNESIUM CITRATE 300 ML BOT ONE (00:01)
[2022-11-14 04:27] VITALS: BP 137/61; TEMP 98.2; O2SAT 99
--- NOTE | 2022-11-14 12:16 | RAD REPORT ---
EXAM DESCRIPTION: CT Abdomen and Pelvis With Intravenous Contrast CLINICAL HISTORY: The patient is 37 years old and is Female; CONSTIPATION TECHNIQUE: Axial computed tomography images of the abdomen and pelvis with intravenous contrast. S agittal and coronal reformatted images were created and reviewed. This CT exam was performed using one or more of the following dose reduction techniques: automated exposure control, adjustment of t he mA and/or kV according to patient size, and/or use of iterative reconstruction technique. DLP: 2405 mGy*cm COMPARISON: Abdominal ultrasound dated 05/13/[address] abdomen and pelvis dated 01/04/2021. FINDINGS: LUNG BASES: Lung bases are clear. HEART: Visualized heart is normal. ABDOMEN: LIVER: Hepatic steatosis. GALLBLADDER AND BILE DUCTS: Unremarkable. No calcified stones. No ductal dilation. PANCREAS: Unremarkable. No mass. No ductal dilation. SPLEEN: Unremarkable. No splenomegaly. ADRENALS: Unremarkable. No mass. KIDNEYS AND URETERS: Unremarkable. No solid mass. No hydronephrosis. STOMACH AND BOWEL: No obstruction. No mucosal thickening. PELVIS: APPENDIX: The appendix is seen and is within normal limits. BLADDER: Bladder is decompressed. REPRODUCTIVE: Right ovarian cyst measuring 3.1 cm. ABDOMEN and PELVIS: INTRAPERITONEAL SPACE: Epigastric postsurgical changes. No significant fluid collection. BONES/JOINTS: Lower lumbar degenerative changes. No acute fracture. No dislocation. SOFT TISSUES: Unremarkable. VASCULATURE: Unremarkable. No abdominal aortic aneurysm. LYMPH NODES: Unremarkable. No enlarged lymph nodes. IMPRESSION: 1. No acute abdominal or pelvic abnormality. 2. Hepatic steatosis. 3. Right ovarian cyst measuring 3.1 cm. No follow-up imaging is recommended. Reference: JACR 2019;17(2):248-254 Electronically signed by: Adam Mancini DO 11/13/2022 11:05 PM CDT Due to temporary technical issues with the PACS/Fluency reporting system, reports are being signed by the in house radiologists without review as a courtesy to insure prompt reporting. The interpreting radiologist is fully responsible for the content of the report.
== END 2022-11-13 23:58 | disposition home or self-care (01) ==
LOC: ER 19:39
DX: K59.00 Constipation, unspecified (principal); Z88.1 Allergy status to other antibiotic agents; Z88.5 Allergy status to narcotic agent
CPT/HCPCS: 85025; 36415; 81025; 81003; 83690; 80053; 74177; Q9967; J7030